=== PATIENT | female | born 1985 | race Caucasian/White ===

== ENCOUNTER 2019-12-19 19:10 | Inpatient (IN) | payer MEDICAID ==
[~2019-12-19] VITALS: Ht 160 cm; Wt 69.4 kg
[2019-12-19 19:23] VITALS: BP 136/86
[2019-12-19] MEDS ORDERED: NACL 0.9% 1,000 ML IV ONE (19:55)
[2019-12-19] MEDS ORDERED: KETOROLAC 30 MG/ML VIAL IVP ONE (19:55)
[2019-12-19] MEDS: NACL 0.9% 1,000 ML IV SCH (20:20)
[2019-12-19] MEDS ORDERED: ONDANSETRON 4 MG/2 ML VIAL IVP PRN (20:20)
[2019-12-19] MEDS ORDERED: ACETAMINOPHEN 325 MG TAB PO PRN (20:20)
[2019-12-19] MEDS: DOCUSATE SODIUM 100 MG GELCAP PO SCH (21:00)
[2019-12-19 21:10] LABS: BASOPHILS % (AUTO) 0.3 % (0.0-2.0); EOSINOPHILS % (AUTO) 0.1 % (0.0-4.0); HEMATOCRIT 31.3 % (36-48); HEMOGLOBIN 10.3 g/dL (12.0-16.0); LYMPHOCYTES # (AUTO) 0.9 K/uL (2.5-16.5); MEAN CORPUSCULAR HEMOGLOBIN 26 pg (27-31); MEAN CORPUSCULAR HGB CONC 33 g/dL (33-37); MEAN CORPUSCULAR VOLUME 79.5 fL (80-94); MONOCYTES # (AUTO) 0.6 K/uL (0.8-1.0); MONOCYTES % (AUTO) 7.4 % (1.7-9.3); NEUTROPHILS # (AUTO) 6.9 K/uL (1.8-7.7); NEUTROPHILS % (AUTO) 81.2 % (42.2-75.2); PLATELET COUNT (AUTO) 372 K/uL (140-450); RED BLOOD CELL COUNT(AUTO) 3.94 MIL/uL (4.20-5.40); RED CELL DISTRIBUTION WIDTH 16.2 % (11.6-13.7); WHITE BLOOD COUNT (AUTO) 8.5 K/uL (4.8-10.8)
[2019-12-19 21:20] LABS: ANION GAP 13.2 (8-16); CARBON DIOXIDE 25.7 mmol/L (21-32); CREATININE 0.9 mg/dL (0.6-1.3); POTASSIUM 3.9 mmol/L (3.5-5.1)
[2019-12-19 21:22] LABS: PROTHROMBIN TIME 10.3 secs (10.8-13.4)
[2019-12-19 21:27] VITALS: BP 127/81
[2019-12-19 21:34] LABS: FREE T4 (FREE THYROXINE) 1.07 ng/dL (0.76-1.46); MAGNESIUM 1.5 mg/dL (1.8-2.4); PHOSPHORUS 1.9 mg/dL (2.5-4.9); THYROID STIMULATING HORMONE 1.09 uIU/mL (0.34-3.74)
[2019-12-19] MEDS ORDERED: MAG SULF 2000 MG/WATER PREMIX 50 ML IV ONE (21:50)
[2019-12-19 22:20] LABS: APPEARANCE,URINE CLEAR (CLEAR); BILIRUBIN,URINE NEGATIVE (NEGATIVE); BLOOD, URINE 2+ (NEGATIVE); COLOR,URINE YELLOW (YELLOW); LEUKOCYTE ESTERASE ,URINE 2+ (NEGATIVE); NITRITE, URINE NEGATIVE (NEGATIVE); UGLUCOSE NEGATIVE (NEGATIVE)
[2019-12-19 22:26] LABS: RBC,URINE 50-80 /HPF (0-5); WBC,URINE 80-100 /HPF (0-5)
[2019-12-19 22:34] LABS: BARBITURATE, URINE NEGATIVE ng/ml (NEG <=200)
[2019-12-19 22:35] LABS: BENZODIAZEPINE, URINE NEGATIVE ng/mL (NEG <=200); CANNABINOID, URINE NEGATIVE ng/mL (NEG <=50); COCAINE, URINE NEGATIVE ng/mL (NEG <=300); OPIATE, URINE POSITIVE ng/mL (NEG <=2000); PHENCYCLIDINE SCREEN,URINE NEGATIVE ng/mL (NEG <=25)
[2019-12-19] MEDS: LEVOFLOXACIN 750 MG/D5W PREMIX 150 ML IV SCH (22:55)
[2019-12-20] VITALS: BP 116/82
[2019-12-20] MEDS ORDERED: cefTRIAXone 1,000 MG VIAL ONE (00:12)
[2019-12-20] MEDS: HYDROcodone/APAP 7.5/325 MG 1 TAB PO PRN ×3 (00:31→17:29)
[2019-12-20] MEDS: KETOROLAC 30 MG/ML VIAL IVP PRN ×3 (04:03→19:06)
[2019-12-20 06:57] LABS: ANION GAP 12.7 (8-16); CARBON DIOXIDE 26.3 mmol/L (21-32)
[2019-12-20 07:03] LABS: MAGNESIUM 2.1 mg/dL (1.8-2.4); PHOSPHORUS 3.2 mg/dL (2.5-4.9)
[2019-12-20 07:04] LABS: BASOPHILS % (AUTO) 0.7 % (0.0-2.0); EOSINOPHILS % (AUTO) 0.4 % (0.0-4.0); HEMOGLOBIN 11.1 g/dL (12.0-16.0); LYMPHOCYTES # (AUTO) 1.2 K/uL (2.5-16.5); MEAN CORPUSCULAR HEMOGLOBIN 27 pg (27-31); MEAN CORPUSCULAR HGB CONC 34 g/dL (33-37); MEAN CORPUSCULAR VOLUME 79.7 fL (80-94); MONOCYTES # (AUTO) 0.6 K/uL (0.8-1.0); MONOCYTES % (AUTO) 9.2 % (1.7-9.3); NEUTROPHILS # (AUTO) 5.1 K/uL (1.8-7.7); NEUTROPHILS % (AUTO) 72.7 % (42.2-75.2); PLATELET COUNT (AUTO) 386 K/uL (140-450); RED BLOOD CELL COUNT(AUTO) 4.15 MIL/uL (4.20-5.40); RED CELL DISTRIBUTION WIDTH 15.7 % (11.6-13.7)
[2019-12-20 08:00] VITALS: BP 114/79
[2019-12-20] MEDS: SODIUM PHOS / POTASSIUM PHOS 1 PKT PDR PO SCH (08:20)
[2019-12-20] MEDS: DOCUSATE SODIUM 100 MG GELCAP PO SCH ×2 (08:20→20:35)
[2019-12-20] MEDS: NACL 0.9% 1,000 ML IV SCH (13:14)
[2019-12-20 16:00] VITALS: BP 111/78
[2019-12-20] MEDS: FERROUS SULFATE 325 MG TABEC PO SCH (16:09)
[2019-12-20 20:00] VITALS: BP 125/81
[2019-12-20] MEDS: LEVOFLOXACIN 750 MG/D5W PREMIX 150 ML IV SCH (22:19)
[2019-12-21] MEDS: HYDROcodone/APAP 7.5/325 MG 1 TAB PO PRN (02:40)
[2019-12-21 06:13] LABS: FOLIC ACID 11.1 ng/mL (>3.0)
[2019-12-21 06:20] LABS: BASOPHILS # (AUTO) 0.1 K/uL (0.00-0.22); BASOPHILS % (AUTO) 0.6 % (0.0-2.0); EOSINOPHILS # (AUTO) 0.1 K/uL (0-0.4); EOSINOPHILS % (AUTO) 0.6 % (0.0-4.0); HEMATOCRIT 31.5 % (36-48); HEMOGLOBIN 10.4 g/dL (12.0-16.0); LYMPHOCYTES # (AUTO) 1.5 K/uL (2.5-16.5); MEAN CORPUSCULAR HEMOGLOBIN 26 pg (27-31); MEAN CORPUSCULAR HGB CONC 33 g/dL (33-37); MEAN CORPUSCULAR VOLUME 79.3 fL (80-94); MONOCYTES # (AUTO) 0.9 K/uL (0.8-1.0); MONOCYTES % (AUTO) 9.7 % (1.7-9.3); NEUTROPHILS # (AUTO) 6.7 K/uL (1.8-7.7); NEUTROPHILS % (AUTO) 73.1 % (42.2-75.2); PLATELET COUNT (AUTO) 403 K/uL (140-450); RED BLOOD CELL COUNT(AUTO) 3.98 MIL/uL (4.20-5.40); RED CELL DISTRIBUTION WIDTH 16.1 % (11.6-13.7); WHITE BLOOD COUNT (AUTO) 9.1 K/uL (4.8-10.8)
[2019-12-21 06:46] VITALS: BP 117/77
[2019-12-21 07:03] LABS: ANION GAP 12.7 (8-16); CARBON DIOXIDE 25.3 mmol/L (21-32); CREATININE 0.9 mg/dL (0.6-1.3)
[2019-12-21 07:09] LABS: MAGNESIUM 1.8 mg/dL (1.8-2.4); PHOSPHORUS 1.9 mg/dL (2.5-4.9)
[2019-12-21] MEDS ORDERED: LEVO750T2 PO (07:47)
[2019-12-21] MEDS ORDERED: IBUP-2213 PO (07:52)
[2019-12-21] MEDS ORDERED: LACT10CA1 PO (07:58)
[2019-12-21] MEDS ORDERED: MAG SULF 2000 MG/WATER PREMIX 50 ML IV SCH (08:00)
[2019-12-21] MEDS: FERROUS SULFATE 325 MG TABEC PO SCH (08:00)
[2019-12-21] MEDS ORDERED: SODIUM PHOS / POTASSIUM PHOS 1 PKT PDR PO SCH (08:00)
[2019-12-21] MEDS: KETOROLAC 30 MG/ML VIAL IVP PRN (08:51)
[2019-12-21] MEDS: DOCUSATE SODIUM 100 MG GELCAP PO SCH (09:00)
[2019-12-21] MEDS: SODIUM PHOS / POTASSIUM PHOS 1 PKT PDR PO SCH (09:00)
[2019-12-21] MEDS: NACL 0.9% 1,000 ML IV SCH (09:02)
[2019-12-21 11:05] VITALS: BP 117/77
== END 2019-12-21 11:40 | disposition home or self-care (01) | DRG 463 ==
LOC: MED 19:10 → MTU 20:20
PROVIDERS: ADMIT General Practice; ATTEND General Practice
DX: N13.6 Pyonephrosis (principal); E83.39 Other disorders of phosphorus metabolism; E83.42 Hypomagnesemia; E66.3 Overweight; F15.10 Other stimulant abuse, uncomplicated; D50.9 Iron deficiency anemia, unspecified; F17.210 Nicotine dependence, cigarettes, uncomplicated; Z68.27 Body mass index [BMI] 27.0-27.9, adult; Z85.43 Personal history of malignant neoplasm of ovary; Z83.3 Family history of diabetes mellitus; Z80.9 Family history of malignant neoplasm, unspecified
CPT/HCPCS: 36415; 71045; 80048; 80305; 81001; 81025; 82150; 82607; 82728; 82746; 83036; 83540; 83690; 83735; 83880; 84100; 84439; 84443; 84484; 85025; 85045; 85610; 85730; 87040; 87081; 87086; 96361; 96374; 99285; J0696; J1885; J1956; J3475; J7060; Q0092